=== PATIENT | male | born 1980 | race Caucasian/White ===

== ENCOUNTER → 2016-07-03 | Outpatient (CLI) | payer OTHER ==
--- NOTE | 2016-07-03 10:07 | CT ---
EXAMINATION TYPE: CT foot LT wo con DATE OF EXAM: 07/03/2016 9:37 AM COMPARISON: NONE HISTORY: Patient fell 8 months ago and broke calcaneus. Patient still experiences pain and decreased range of motion. CT DLP: 177.7 mGycm Automated exposure control for dose reduction was used. Unenhanced CT of the left foot was performed in the axial coronal and sagittal planes. Bone and soft tissue window settings are submitted. FINDINGS: Nonacute fracture of the body left os calcis is noted. Portions of the fracture line continue to be v isible compatible with partial nonunion. Fracture line is noted to extend into the posterior facet. T here is a mild flattening of the os calcis. Callus formation is noted along the additional components of the fracture. No significant displacement is appreciated. There is evidence of a disuse bony oste openia. Talocalcaneal joint as well as the cubocalcaneal joint are well preserved. Plantar spur forma tion noted to moderate in size. No acute fractures identified with certainty at this time. IMPRESSION: MILD PARTIAL NONUNION NONACUTE FRACTURE LEFT OS CALCIS DISCUSSED.
== END | disposition home or self-care (01) ==
LOC: RADCTMAIN 09:18
PROVIDERS: ATTEND Orthopaedic Surgery
DX: S92.002K Unspecified fracture of left calcaneus, subsequent encounter for fracture with nonunion (principal)